=== PATIENT | male | born 1970 | race Caucasian/White ===

== ENCOUNTER 2017-06-22 10:14 | Emergency (ER) | payer OTHER ==
[2017-06-22] MEDS ORDERED: Tetracaine 0.5% OPHTH SOLN/PF 4 ML BOT ONE (11:16)
[2017-06-22] MEDS ORDERED: HYDROcodone/Acetaminophen 10/325 mg Tablet ONE (11:16)
== END 2017-06-22 11:38 | disposition home or self-care (01) ==
LOC: MADERS 10:14
DX: H18.891 Other specified disorders of cornea, right eye (principal); Z79.899 Other long term (current) drug therapy
CPT/HCPCS: 99283

== ENCOUNTER 2017-08-06 11:46 | Outpatient (CLI) | payer OTHER ==
[2017-08-06 12:44] LABS: Hemoglobin 18.2 g/dL (14.0-18.0); Mean Corpuscular HGB CONC 37.1 g/dL (32.0-36.0); Mean Corpuscular Hemoglobin 34.9 pg (27.0-31.0); Mean Corpuscular Volume 94.2 fl (80.0-94.0); Platelet Count 179 thou/uL (130-400); Red Blood Cell (RBC) Count 5.22 mill/uL (4.70-6.10); White Blood Cell (WBC) Count 12.2 thou/uL (4.8-10.8)
[2017-08-06 12:56] LABS: ALT (SGPT) 36 U/L (8-55); AST (SGOT) 22 U/L (5-34); Albumin 4.2 g/dL (3.5-5.0); Alkaline Phosphatase 92 U/L (40-150); Anion Gap 15 mmol/L (10-20); BUN (Urea Nitrogen) 13 mg/dL (8.9-20.6); Bilirubin, Total 1.6 mg/dL (0.2-1.2); Calc. Creatinine Clearance 0 mL/min (70-130); Calcium 9.2 mg/dL (7.8-10.44); Carbon Dioxide 27 mmol/L (22-29); Chloride 99 mmol/L (98-107); Estimated GFR-MDRD 79; Globulin 3.2 g/dL (2.4-3.5); Glucose 105 mg/dL (70-105); Potassium 4.2 mmol/L (3.5-5.1); Protein, Total 7.4 g/dL (6.0-8.3); Sodium 137 mmol/L (136-145)
--- NOTE | 2017-08-06 13:01 | RAD ---
CHEST TWO VIEWS: History: Cough and congestion. Comparison: None. FINDINGS: Lungs are without focal airspace consolidation, pneumothorax, or effusion. Cardiomediastinal silhouet te and mediastinal contours are within normal limits. No acute osseous abnormality. IMPRESSION: No acute intrathoracic abnormality. POS: [facility]
[2017-08-06 13:42] LABS: #Basophils 0.2 thou/uL (0.0-0.2); #Eosinphils 0.4 thou/uL (0.0-0.7); #Lymphocytes 1.8 thou/uL (1.20-3.40); #Neutrophils 8.9 thou/uL (1.40-6.50); %Basophils 1.3 % (0.0-1.0); %Eosinophils 2.9 % (0.0-10.0); %Lymphocytes 14.8 % (21.0-51.0); %Monocytes 8.3 % (0.0-10.0); %Neutrophils 72.7 % (42.0-75.0); Anisocytosis SLIGHT = 6-15 cells (100X) (0-5/hpf); MDiff Complete? YES
== END 2017-08-06 11:47 | disposition home or self-care (01) ==
LOC: MADLAB 11:46
PROVIDERS: ATTEND Family Medicine
DX: J18.9 Pneumonia, unspecified organism (principal)
CPT/HCPCS: 36415; 71046; 80053; 85025; 87040

== ENCOUNTER 2019-06-25 13:40 | Outpatient (CLI) | payer OTHER ==
--- NOTE | 2019-06-25 14:12 | RAD ---
XR Knee Rt 4 View STANDARD HISTORY: Right knee pain FINDINGS: No fracture or dislocation is identified. No significant arthritic changes are seen.
== END 2019-06-25 13:41 | disposition home or self-care (01) ==
LOC: MADRAD 13:40
DX: M25.561 Pain in right knee (principal)

== ENCOUNTER 2019-12-30 10:27 | Outpatient (CLI) | payer OTHER ==
--- NOTE | 2019-12-30 12:11 | RAD ---
PA AND LATERAL VIEWS CHEST: Date: 12/30/2019 HISTORY: Bronchitis. COMPARISON: 08/06/2017. FINDINGS: The heart size is normal. The lungs are expanded without focal areas of consolidation, pneumothoraces , or pleural effusions. IMPRESSION: No radiographic evidence of acute cardiopulmonary process. POS: [facility]
== END 2019-12-30 10:28 | disposition home or self-care (01) ==
LOC: MADRAD 10:27
PROVIDERS: ATTEND Family Medicine
DX: J20.9 Acute bronchitis, unspecified (principal)
CPT/HCPCS: 71046